=== PATIENT | male | born 1975 | race Caucasian/White ===

== ENCOUNTER 2023-04-14 09:42 | Emergency (ER) | payer BC ==
[2023-04-14 09:56] VITALS: PULSE 95; RESP 16; TEMP 98.8; BMI 26.6
[2023-04-14 10:33] VITALS: BP 143/102
== END 2023-04-14 11:32 | disposition home or self-care (01) ==
LOC: FER 09:42
DX: I10 Essential (primary) hypertension (principal)
CPT/HCPCS: 93005; 99283-25